=== PATIENT | female | born 1970 | race Hispanic/Latino ===

== ENCOUNTER 2022-05-20 20:56 | Emergency (ER) | payer BC, OTHER ==
[~2022-05-20] VITALS: Ht 152.4 cm; Wt 98.9 kg
[~2022-05-20 20:56] MED LIST: METO10TA41 PO
[2022-05-20] MEDS ORDERED: IBUPROFEN 600 MG TABLET ONE (21:10)
[2022-05-20] MEDS ORDERED: IBUPROFEN 600 MG TABLET PO ONE (21:30)
[2022-05-20] MEDS ORDERED: IBUP-2070 PO (22:27)
[2022-05-20 22:32] VITALS: BP 136/72
== END 2022-05-20 22:42 | disposition home or self-care (01) ==
LOC: EDH 20:56
DX: S92.352A Displaced fracture of fifth metatarsal bone, left foot, initial encounter for closed fracture (principal); I10 Essential (primary) hypertension; Z98.890 Other specified postprocedural states; Z90.49 Acquired absence of other specified parts of digestive tract; Z79.899 Other long term (current) drug therapy; X50.1XXA Overexertion from prolonged static or awkward postures, initial encounter; Y93.01 Activity, walking, marching and hiking; Y92.89 Other specified places as the place of occurrence of the external cause; Y99.8 Other external cause status
CPT/HCPCS: 29505; 73630

== ENCOUNTER → 2024-09-22 | Outpatient (CLI) | payer OTHER ==
[~2024-09-22] MED LIST changes: +IBUP-2070 PO
--- NOTE | 2024-09-22 16:06 | HMCIMG ---
MR KNEE RIGHT WO REASON: M25.561 Pain in right knee COMPARISON: None TECHNIQUE: Routine imaging protocol was performed in the sagittal, axial and coronal plane with T1, proton density, T2 and gradient recalled sequences. FINDINGS: There is a complex tear posterior horn and mid zone of the medial meniscus. Anterior horn appears intact as does the lateral meniscus. There is mild cartilage loss in the medial joint compartment. There is some thickening and increased signal in the mid substance of the posterior cruciate ligament, extending approximately toward the femoral origin. Appearance is consistent with a partial PCL tear. There do appear to be intact fibers present peripherally. The anterior cruciate ligament appears unremarkable. The collateral ligaments appear normal. Quadriceps and patellar tendons appear normal. There are no focal osseous lesions. There is a small joint effusion. Surrounding soft tissues appear unremarkable. IMPRESSION: 1. Findings consistent with a partial tear of the posterior cruciate ligament. 2. Complex tear posterior horn and mid zone of the medial meniscus, there is also some degenerative narrowing of the medial joint compartment. 3. Small joint effusion.
[2024-09-24] VITALS (7 sets, daily range): BP systolic 122–151; BP diastolic 70–92; PULSE 79–94; RESP 15–17; TEMP 97.4–97.7
== END | disposition home or self-care (01) ==
LOC: RAH 13:39
PROVIDERS: ATTEND Family Medicine
DX: S83.231A Complex tear of medial meniscus, current injury, right knee, initial encounter (principal); M17.11 Unilateral primary osteoarthritis, right knee; M25.461 Effusion, right knee; M25.561 Pain in right knee; X58.XXXA Exposure to other specified factors, initial encounter; Y93.89 Activity, other specified; Y92.89 Other specified places as the place of occurrence of the external cause; Y99.8 Other external cause status
CPT/HCPCS: 73721